=== PATIENT | female | born 1990 | race Caucasian/White ===

== ENCOUNTER → 2024-06-29 | Outpatient (CLI) | payer OTHER ==
[2024-07-01 23:30] LABS: HSV 1 SUBTYPE BY PCR Detected; HSV 2 SUBTYPE BY PCR Not Detected; HSV SUBTYPE SOURCE ORAL
== END ==
LOC: LAB SHORT 08:24 → LAB 08:24
PROVIDERS: Emergency Medicine
DX: K12.0 Recurrent oral aphthae (principal)
CPT/HCPCS: 87529

== ENCOUNTER → 2025-01-04 | Outpatient (CLI) | payer OTHER | END | disposition home or self-care (01) | LOC: LAB 18:56 → LAB SHORT 18:56 | DX: J02.9 Acute pharyngitis, unspecified (principal) | CPT/HCPCS: 87081 ==